=== PATIENT | female | born 1950 ===

== ENCOUNTER 2021-07-18 20:25 | Emergency (ER) | payer OTHER ==
[~2021-07-18] VITALS: Ht 172.7 cm; Wt 72.6 kg
[~2021-07-18 20:25] MED LIST: ULTRAM50 MG PO
[2021-07-18] MEDS ORDERED: CLEOCIN HCL300 MG PO (21:57)
== END 2021-07-18 22:03 | disposition home or self-care (01) ==
LOC: ER 20:25
DX: S81.812A Laceration without foreign body, left lower leg, initial encounter (principal); W18.39XA Other fall on same level, initial encounter; Y92.488 Other paved roadways as the place of occurrence of the external cause

== ENCOUNTER 2021-07-25 18:03 | Emergency (ER) | payer OTHER ==
[~2021-07-25] VITALS: Ht 165.1 cm; Wt 72.6 kg
[~2021-07-25 18:03] MED LIST changes: +CLEOCIN HCL300 MG PO
== END 2021-07-25 20:21 | disposition home or self-care (01) ==
LOC: ER 18:03
DX: Z48.02 Encounter for removal of sutures (principal)